=== PATIENT | female | born 1965 | race Caucasian/White ===

== ENCOUNTER 2016-07-16 01:38 | Day surgery (SDC) | payer OTHER ==
[~2016-07-16] VITALS: Ht 160 cm; Wt 59.0 kg
[~2016-07-16 01:38] MED LIST: AMOX500C2 PO; ERGO2000 PO; ZOV800 PO
[2016-07-16] MEDS ORDERED: Sodium Chloride LOK Flush 10 mL Syringe IV PRN (06:00)
[2016-07-16] MEDS ORDERED: 0.9% Sodium Chloride 1,000 ML IV SCH (06:00)
[2016-07-16] MEDS ORDERED: fentaNYL-PF 50 mCg/mL 2 mL Inj IVPUSH PRN (06:00)
[2016-07-16 10:20] VITALS: BP 103/62; PULSE 66; RESP 16; O2SAT 100
[2016-07-16] MEDS ORDERED: MELO-259 PO (10:20)
[2016-07-16 11:55] VITALS: BP 97/64; PULSE 77; RESP 16; O2SAT 100
[2016-07-16 12:05] VITALS: BP 88/60; PULSE 77; RESP 16; O2SAT 100
[2016-07-16 12:15] VITALS: BP 90/57; PULSE 83; RESP 16; O2SAT 100
--- NOTE | 2016-07-16 23:13 | ENDO ---
[address] [address] ENDOSCOPY PROCEDURE PATIENT: RACHEL WILLIS : 1965 MR#: [id number] ADMIT: 07/16/2016 JOB ID: [id number] DATE: 07/16/2016 PRIMARY PROVIDER: Oswald Dobson MD PROCEDURE: Colonoscopy. INDICATIONS: A 51-year-old female who reports for colon cancer screening. EQUIPMENT: PCF H 190 DL. SEDATION: 1. 5 mg Versed. 2. 100 mcg fentanyl. COMPLICATIONS: None identified. BOWEL PREP: Fair, adequate exam. PROCEDURE INFORMATION: After the risks and benefits were explained, written and verbal informed consent was obtained. The patient was brought into the endoscopy suite and placed into the left lateral decubitus position. Sedation was achieved as above. A digital rectal examination accomplished. No pathology identified. The scope was introduced into the rectum and advanced to the cecum as identified by the appendiceal orifice and ileocecal valve. The scope was slowly withdrawn to carefully examine the mucosa for any defects or lesions. Multiple direct views were made through the dentate line for exclusion of pathology. The colon was decompressed. The scope removed from the patient who tolerated the procedure well. FINDINGS: No significant polyps, mass lesions, or inflammatory features were identified throughout. The patient had a moderately challenging navigation through the sigmoid secondary to tortuosity. ENDOSCOPIC DIAGNOSIS: Visually unremarkable colonoscopy to cecum. RECOMMENDATIONS: Repeat colonoscopy in 10 years' time, sooner should symptoms warrant.
== END 2016-07-16 23:59 | disposition home or self-care (01) ==
LOC: END 01:38
PROVIDERS: ATTEND Internal Medicine Gastroenterology
DX: Z12.11 Encounter for screening for malignant neoplasm of colon (principal)
CPT/HCPCS: G0121; G0500; J7030